=== PATIENT | male | born 1960 | race Caucasian/White ===

== ENCOUNTER 2016-12-23 15:48 | Emergency (ER) | payer MEDICAID ==
[2016-12-23] MEDS ORDERED: IBUPROFEN 600 MG TABLET PO STA (16:15)
[2016-12-23] MEDS ORDERED: HYDROcod/ACETAM 5/325 MG TABLET PO STA (16:15)
[2016-12-23] MEDS ORDERED: HYDROcod/ACETAM 5/325 MG TABLET ONE (16:34)
[2016-12-23] MEDS ORDERED: IBUPROFEN 600 MG TABLET PO ONE (16:34)
== END 2016-12-23 17:15 | disposition home or self-care (01) ==
DX: M75.32 Calcific tendinitis of left shoulder (principal); S46.002A Unspecified injury of muscle(s) and tendon(s) of the rotator cuff of left shoulder, initial encounter; X50.0XXA Overexertion from strenuous movement or load, initial encounter; Y93.89 Activity, other specified; Y92.89 Other specified places as the place of occurrence of the external cause; Y99.0 Civilian activity done for income or pay; I10 Essential (primary) hypertension
CPT/HCPCS: 73030; 99283; A9270

== ENCOUNTER 2017-07-25 10:20 | Outpatient (CLI) | payer MEDICAID ==
--- NOTE | 2017-07-25 15:18 | MRI Report ---
EXAM: LEFT SHOULDER MRI WITHOUT CONTRAST EXAM DATE: 07/25/2017 11:15 AM. CLINICAL HISTORY: Left shoulder pain. COMPARISON: Left shoulder radiography from 12/23/2016. TECHNIQUE: Multiplanar, multisequence T1-weighted and fluid-sensitive sequences of the shoulder witho ut contrast. Other: None. FINDINGS: Acromioclavicular Region: The acromion is type I. The acromioclavicular joint is unremarkable. The co racoacromial and coracoclavicular ligaments are intact. Small to moderate amount of fluid at the suba cromial subdeltoid bursa. There is also isointense to hypointense tissue within the subacromial subde ltoid bursa. Glenohumeral Region: The humeral head is subluxed slightly superiorly relative to the glenoid. No eff usion or loose bodies. 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 The glenohumeral ligam ents and joint capsule are unremarkable. Bone Marrow: Subchondral marrow edema and tiny subcortical cysts at the anterosuperior aspect of the humeral head. No acute fracture or bone lesions. Small focus of mild subchondral marrow edema at the posterior-superior aspect of the glenoid. Labrum: There is a probable sublabral sulcus variant at the superior aspect of the labrum. The college tutor ior aspect of the labrum appears mildly degenerated. No definite labral tear is seen on this non-arth rographic exam. Musculature/Rotator Cuff: There is a focal, approximately 2.4 cm AP by 1.6 cm medial to lateral full- thickness, partial width tear at the mid to posterior aspects of the supraspinatus tendon. The tear a lso extends into the anterior to mid aspects of the infraspinatus tendon. There is tendinosis and par tial-thickness tearing of the remaining infraspinatus tendon. The teres minor tendon is intact. There is diffuse low-grade articular surface fraying/tearing at the distal aspect of the subscapularis ten don. Grade 2 fatty atrophy and edema at the infraspinatus muscle. Biceps Tendon: The long head of the biceps tendon and biceps erin are intact. Other: The subcutaneous tissues are unremarkable. IMPRESSION: 1. Mild to moderate subacromial/subdeltoid bursitis. There is a small amount of tissue within the sub acromial subdeltoid bursa which is probably inflammatory in etiology. 2. Slight superior subluxation of the humeral head relative to the glenoid. Grade 3 chondromalacia at the glenohumeral joint. 3. Mild degeneration at the posterior aspect of the labrum. 4. Focal full-thickness, partial width tear at the mid to posterior aspects of the supraspinatus tend on and anterior to mid aspects of the infraspinatus tendon. There is tendinosis and partial-thickness tearing of the remaining infraspinatus tendon. Diffuse low-grade articular surface fraying/tearing a t the distal aspect of the subscapularis tendon. Grade 2 fatty atrophy and edema at the infraspinatus muscle. [facility] MUSCULOSKE[facility] RADIOLOGY SECTION Referring Provider Line: [phone] SITE ID: [id number]
== END 2017-07-25 10:21 | disposition home or self-care (01) ==
LOC: DI 10:20
PROVIDERS: ATTEND Orthopaedic Surgery
DX: M75.52 Bursitis of left shoulder (principal); M75.102 Unspecified rotator cuff tear or rupture of left shoulder, not specified as traumatic; S43.002A Unspecified subluxation of left shoulder joint, initial encounter; M94.212 Chondromalacia, left shoulder; Z01.810 Encounter for preprocedural cardiovascular examination; Z79.899 Other long term (current) drug therapy
CPT/HCPCS: 93005

== ENCOUNTER 2017-08-02 10:10 | Day surgery (SDC) | payer MEDICAID ==
[~2017-08-02 10:10] MED LIST: SODIUM CHLORIDE FLUSH 0.9% 10 ML SYRINGE IVP ONE; ceFAZolin 2 GM/50 ML 2 GM/50 ML BAG IV ONE
[2017-08-02] MEDS ORDERED: LACTATED RINGERS 1,000 ML IV ONE ×2 (10:17→13:26)
[2017-08-02] MEDS ORDERED: BUPIVACAINE 0.5% PF 30 ML VIAL SUBQ ONE ×3 (11:20→13:25)
[2017-08-02] MEDS ORDERED: DEXAMETHASONE 4 MG/ML VIAL IVP ONE (11:45)
[2017-08-02] MEDS ORDERED: fentaNYL 100 MCG/2 ML VIAL IVP ONE (11:45)
[2017-08-02] MEDS ORDERED: GLYCOPYRROLATE 1 MG/5 ML VIAL IVP ONE (11:45)
[2017-08-02] MEDS ORDERED: LIDOCAINE-MPF 2% 5 ML VIAL IM ONE (11:45)
[2017-08-02] MEDS ORDERED: KETOROLAC 30 MG/ML VIAL IVP ONE (11:45)
[2017-08-02] MEDS ORDERED: SUCCINYLCHOLINE 200 MG/10 ML VIAL IVP ONE (11:45)
[2017-08-02] MEDS ORDERED: ONDANSETRON 4 MG/2 ML VIAL IVP ONE (11:45)
[2017-08-02] MEDS ORDERED: MIDAZOLAM 2 MG/2 ML VIAL IVP ONE (11:45)
[2017-08-02] MEDS ORDERED: ROCURONIUM 50 MG/5 ML VIAL IVP ONE (11:45)
[2017-08-02] MEDS ORDERED: PROPOFOL 200 MG/20 ML VIAL IVP ONE (11:45)
[2017-08-02] MEDS ORDERED: NEOSTIGMINE 1 MG/1 ML 10 ML MDV IVP ONE (11:45)
--- NOTE | 2017-08-02 13:57 | OPERATIVE REPORT ---
Operative Report - General Procedure Date: 08/02/17 Planned Procedure: TEP LEFT inguinal herniorrhaphy Pre-Op Diagnosis: LEFT inguinal hernia Procedure Performed: LEFT recurrent indirect inguinal herniorrhaphy Post Op Diagnosis: Recurrent LEFT indirect inguinal hernia - Procedure Note Primary Surgeon: Boom Leslie MD Anesthesia Provider: John Terry Anesthesia Technique: General ET tube, Local (30 mL 1/2% marcaine) IV Fluids (mL): 900 Estimated Blood Loss (mL): 10 Complications: None. - Other Other Information/Narrative: OPERATIVE DESCRIPTION/REPORT: After verbal and written informed consent was obtained detailing the risks of infection, bleeding requiring transfusion with its risks, nerve injury, and , and after I met with the patient confirming the surgery and the site of the surgery, the patient was brought to the operative suite and placed supine on the operating table. Great care was taken to avoid pressure points to prevent pressure necrosis or nerve injury. Monitoring devices were applied along with TEDs and pneumatic compressive stockings (to prevent DVT). The patient received preoperative antibiotics for surgical prophylaxis. John Terry sedated and induced general anesthesia and provided anesthesia care for the entirety of the case. The patient was prepped and draped in the usual sterile manner. With the patient draped my initials were clearly visible. A "time in" then confirmed that the patient was identified with 3 identifiers ( name, date and medical record number), the history and physical was in the chart, the signed consent confirming the procedure was in the chart, the patient was in the correct position, the aforementioned prophylactic measures were in place or given, we had the correct personnel and equipment to complete the procedure and that anesthesia, surgery and nursing were given an opportunity to express any concerns. With the agreement of everyone in the room , we proceeded with the operation. A transverse skin incision was made below and to the right of the umbilicus to a length of approximately 3 cm. The incision was carried through the subcutaneous tissue. Bleeders were cauterized. The right rectus sheath was identified and incised lateral to the midline. The preperitoneal space was then developed following insertion of a Spacemaker balloon, which was inflated under direct vision. Following removal of the Spacemaker balloon, a #10 trocar was placed in the preperitoneal space and the preperitoneal space was insufflated with CO2 to a steady state pressure of 15 mmHg. A 10 mm 30 degree laparoscope was inserted in the preperitoneal space. Two #5 trocars were placed in the lower right and midline 5 cm and 10 cm away from the umbilical incision under direct vision and without incident. Landmarks including symphysis pubis, right and left Jon ligaments and right and left inferior epigastric vessels were identified. Dissection was then continued lateral to the transverse abdominis muscle bilaterally. The left (symptomatic) side was addressed first. The internal ring was then explored for the presence of the indirect hernia sac and an indirect hernia was found. The sac was large, broad based and scarred. The sac was dissected free from the cord structures and the cremasteric muscles with significant difficulty. A small hole was made in the sac during the dissection and due to the small size I opted not to fix it. The dissection brought the peritoneum posterolaterally so that it would lay on proper side of the mesh. Exploration of the medial space showed no medial defect consistent with a direct hernia. A large size Bard 3DMax light mesh (Lot #[id number], reference #[id number], use by date 2022-02-06) was placed in the preperitoneal space and anchored to the symphysis pubis with a SecureStrap tacker. The mesh covered the internal ring as well as the medial space. Great care was taken to ensure that the peritoneum was swept down so that it could not "creep" behind the mesh and result in a re-recurrent hernia. The right side was then addressed. There was no indirect inguinal hernia. The direct inguinal space was clearly seen but no definitive hernia was present. Consequently I left the right side alone. 20 mL of 1/2% Marcaine was injected into the preperitoneal space and then remaining 10 mL at all three incisions. The preperitoneal space was then deflated and during the deflation the mesh was watched to ensure that it was sandwiched nicely in place and did not change position. All trocars were withdrawn. The defect in the rectus sheath was closed with two [id number] 0 Vicryl sutures. The skin incisions were closed with subcuticular 4-0 Monocryl suture. The prep was washed off and Mastisol and Steristrips were applied at all the incisions. At this point a time out was performed that confirmed that all the counts were correct, the procedure that was performed, the blood loss, the IV fluids administered, and the patients condition. The patient's scrotum was evaluated to ensure that the testicles were well seated within the scrotum and that there was no swelling. The prep was washed off and Benzoin and Steristrips were applied. Having tolerated the procedure well, the patient was subsequently extubated and taken to recovery room in good and stable condition.
[2017-08-02 15:14] VITALS: BP 136/75
== END 2017-08-02 10:11 | disposition home or self-care (01) ==
LOC: SDS 10:10
PROVIDERS: ATTEND Surgery
PROC: 0YU64JZ Supplement Left Inguinal Region with Synthetic Substitute, Percutaneous Endoscopic Approach (ICD-10-PCS; principal; 2017-08-02 11:15)
DX: K40.91 Unilateral inguinal hernia, without obstruction or gangrene, recurrent (principal); I10 Essential (primary) hypertension; J45.909 Unspecified asthma, uncomplicated; Z87.891 Personal history of nicotine dependence
CPT/HCPCS: 49651; C1781; J0690; J7120

== ENCOUNTER 2017-09-19 08:29 | Outpatient (CLI) | payer MEDICAID ==
--- NOTE | 2017-09-19 13:56 | XRAY Report ---
TWO VIEW RIGHT FOOT: 09/19/2017 CLINICAL INDICATION: Foreign body. FINDINGS: Frontal and lateral views of the right foot demonstrate mild degenerative changes. There is no evidence of acute fracture. No radiopaque foreign body is seen in the soft tissues. IMPRESSION: NO EVIDENCE OF A RADIOPAQUE FOREIGN BODY IN THE SOFT TISSUES. MILD OSTEOARTHRITIS. TD: 09/19/2017 13:55
== END 2017-09-19 08:30 | disposition home or self-care (01) ==
LOC: DI.S 08:29
PROVIDERS: ATTEND Family Medicine
DX: M19.072 Primary osteoarthritis, left ankle and foot (principal)

== ENCOUNTER 2017-10-04 10:32 | Outpatient (CLI) | payer MEDICAID ==
[2017-10-04 17:51] LABS: BASOPHILS # (AUTO) 0.1 10^3/uL (0.0-0.1); BASOPHILS % (AUTO) 1.1 %; EOSINOPHILS # (AUTO) 0.2 10^3/uL (0.0-0.7); EOSINOPHILS % (AUTO) 2.2 %; HGB - HEMOGLOBIN 15.5 g/dL (14.0-18.0); LYMPHOCYTES # (AUTO) 2.6 10^3/uL (1.5-3.5); LYMPHOCYTES % (AUTO) 24.7 %; MEAN CORPUSCULAR HEMOGLOBIN 31.6 pg (27.0-31.0); MEAN CORPUSCULAR HGB CONC 33.6 g/dL (32.0-36.0); MEAN CORPUSCULAR VOLUME 94.1 fL (80.0-94.0); MEAN PLATELET VOLUME 8.3 fL (7.4-11.4); MONOCYTES # (AUTO) 0.8 10^3/uL (0.0-1.0); MONOCYTES % (AUTO) 7.8 %; NEUTROPHILS # (AUTO) 6.6 10^3/uL (1.5-6.6); NEUTROPHILS % (AUTO) 64.2 %; PLT - PLATELET COUNT 267 10^3/uL (130-450); RED BLOOD COUNT 4.91 10^6/uL (4.70-6.10); RED CELL DISTRIBUTION WIDTH 14.4 % (12.0-15.0); WHITE BLOOD COUNT 10.3 x10^3/uL (4.8-10.8)
[2017-10-04 18:10] LABS: ALBUMIN 4.7 g/dL (3.2-5.5); ALBUMIN/GLOBULIN RATIO 1.4 (1.0-2.2); ALKALINE PHOSPHATASE 72 IU/L (42-121); ALT ALANINE AMINOTRANSFERASE 26 IU/L (10-60); AST ASPARTATE AMINOTRANSFERASE 25 IU/L (10-42); BILIRUBIN,TOTAL 0.9 mg/dL (0.2-1.0); BUN - BLOOD UREA NITROGEN 15 mg/dL (6-20); CALCIUM 9.3 mg/dL (8.5-10.3); CARBON DIOXIDE - CO2 27 mmol/L (21-32); CHLORIDE 99 mmol/L (101-111); CHOL/HDL RATIO 3.9 (<5.0); CHOLESTEROL 192 mg/dL; CREATININE 0.8 mg/dL (0.6-1.2); GFR - MDRD 99 (>89); GLUCOSE 112 mg/dL (70-100); HDL CHOLESTEROL 49 mg/dL; LDL CHOLESTEROL,CALCULATED 121 mg/dL; LDL/HDL RATIO 2.5 (<3.6); SODIUM 136 mmol/L (135-145); URIC ACID 7.9 mg/dL (2.6-7.2); VLDL CHOLESTEROL 22 mg/dL
== END 2017-10-04 10:33 | disposition home or self-care (01) ==
LOC: LAB.F 10:32
PROVIDERS: ATTEND Nurse Practitioner Family
DX: Z86.79 Personal history of other diseases of the circulatory system (principal); M79.676 Pain in unspecified toe(s)
CPT/HCPCS: 36415; 80050; 80061; 83721; 84550

== ENCOUNTER 2019-09-13 18:44 | Emergency (ER) | payer MEDICAID ==
--- NOTE | 2019-09-13 19:42 | ED Physician Documentation ---
History of Present Illness - Stated complaint Stated Complaint: RT ANKLE,LT SHOULDER PX - Chief complaint Chief Complaint: Ext Problem - History obtained from History obtained from: Patient (Lower extremity swelling for the last 6 months after he ran out of his hydrochlorothiazide he denies any chest pain or shortness of breath, He reports that his primary care physician has retired and he has been unable to establish care with a primary care physician since that time.He denies any chest pain he denies abdominal pain he denies any syncopal episodes.) Review of Systems Constitutional: reports: Reviewed and negative Eyes: reports: Reviewed and negative Ears: reports: Reviewed and negative Nose: reports: Reviewed and negative Throat: reports: Reviewed and negative Cardiac: reports: Pedal edema Respiratory: reports: Reviewed and negative GI: reports: Reviewed and negative : reports: Reviewed and negative Skin: reports: Reviewed and negative Musculoskeletal: reports: Neck pain, Back pain, Joint pain, Reviewed and negative. denies: Extremity pain, Joint swelling, Pain with weight bearing Neurologic: reports: Reviewed and negative Psychiatric: reports: Reviewed and negative Endocrine: reports: Reviewed and negative Immunocompromised: reports: Reviewed and negative PD PAST MEDICAL HISTORY - Past Medical History Past Medical History: Yes Cardiovascular: Congestive heart failure, Hypertension Respiratory: None Endocrine/Autoimmune: None : None HEENT: None Psych: None Musculoskeletal: None Derm: None - Past Surgical History Past Surgical History: Yes General: Hiatal hernia repair - Present Medications Home Medications: Ambulatory Orders Medication Instructions Recorded Confirmed Aspirin [Cristiane] 325 mg PO BID PRN 08/02/17 08/02/17 Metoprolol Tartrate [Lopressor] 50 mg PO ONCE 08/02/17 08/02/17 hydroCHLOROthiazide 50 mg PO DAILY 08/02/17 08/02/17 [Hydrochlorothiazide] hydroCHLOROthiazide 25 mg PO DAILY #7 tablet 09/13/19 [Hydrochlorothiazide] - Allergies Allergies/Adverse Reactions: Allergies Allergy/AdvReac Type Severity Reaction Status Date / Time No Known Drug Allergies Allergy Verified 09/13/19 18:59 - Social History Does the pt smoke?: No Smoking Status: Never smoker Does the pt drink ETOH?: Yes Does the pt have substance abuse?: Yes Substance Use and Type: Marijuana - Immunizations Immunizations are current?: Yes - POLST Patient has POLST: No PD ED PE NORMAL - Vitals Vital signs reviewed: Yes - General General: Alert and oriented X 3, No acute distress - HEENT HEENT: PERRL - Neck Neck: Supple, no meningeal sign - Cardiac Cardiac: RRR, No murmur - Respiratory Respiratory: Clear bilaterally - Abdomen Abdomen: Normal bowel sounds, Soft, Non tender, Non distended - Derm Derm: Warm and dry - Extremities Extremities: No deformity, No tenderness to palpate, Normal ROM s pain, No calf tenderness / cord, Other (There is 2+ pitting edema to bilateral lower extremities that is pretibial and symmetric.) - Neuro Neuro: Alert and oriented X 3, stereo plotter operator 2-12 intact, No motor deficit, No sensory deficit, Normal speech - Psych Psych: Normal mood, Normal affect Results - Vitals Vitals: Vital Signs - 24 hr 09/13/19 18:59 Temperature 36.8 C Heart Rate 78 Respiratory 18 Rate Blood Pressure 179/101 H O2 Saturation 98 Oxygen O2 Source Room air Departure - Departure Disposition: 01 Home, Self Care Clinical Impression: Bilateral lower extremity edema Condition: Good Instructions: ED Edema Legs Bilateral Follow-Up: YOUR,DOCTOR [Other] Prescriptions: hydroCHLOROthiazide [Hydrochlorothiazide] 25 mg PO DAILY #7 tablet
[2019-09-13] MEDS ORDERED: hydroCHLOROthiazide 25 MG TABLET PO STA (19:43)
[2019-09-13 19:55] VITALS: BP 192/107
== END 2019-09-13 19:55 | disposition home or self-care (01) ==
LOC: ED 18:44
DX: R60.0 Localized edema (principal); I10 Essential (primary) hypertension; Z79.82 Long term (current) use of aspirin
CPT/HCPCS: 99282; 99284; A9270

== ENCOUNTER 2022-12-26 02:13 | Emergency (ER) | payer MEDICAID ==
--- NOTE | 2022-12-26 02:59 | ED Physician Documentation ---
PD HPI BACK PAIN - Stated complaint Stated Complaint: LOW BACK PX - Chief complaint Chief Complaint: Abd Pain - History obtained from History obtained from: Patient - Additional information Additional information: HPI from patient. Four days ago , patient awoke from sleep with right flank and right low back pain, worse with movement including lifting RLE. Has not had these symptoms before. Denies injury, denies fever. Review of Systems Constitutional: denies: Fever, Chills, Sweats GI: denies: Abdominal Pain, Nausea, Vomiting : denies: Dysuria, Frequency, Hematuria Skin: denies: Rash Musculoskeletal: reports: Back pain. denies: Neck pain Neurologic: denies: Generalized weakness, Focal weakness, Numbness PD PAST MEDICAL HISTORY - Past Medical History Cardiovascular: Congestive heart failure, Hypertension Respiratory: None Endocrine/Autoimmune: None : None HEENT: None Psych: None Musculoskeletal: None Derm: None - Past Surgical History Past Surgical History: Yes General: Hiatal hernia repair - Present Medications Home Medications: Ambulatory Orders Medication Instructions Recorded Confirmed Aspirin [Cristiane] 325 mg PO BID PRN 08/02/17 08/02/17 Metoprolol Tartrate [Lopressor] 50 mg PO ONCE 08/02/17 08/02/17 hydroCHLOROthiazide 50 mg PO DAILY 08/02/17 08/02/17 [Hydrochlorothiazide] hydroCHLOROthiazide 25 mg PO DAILY #7 tablet 09/13/19 [Hydrochlorothiazide] Oxycodone HCl/Acetaminophen 1 - 2 each PO Q6H PRN #14 tablet 12/26/22 [Percocet 5-325 mg Tablet] amLODIPine [Norvasc] 5 mg PO DAILY #30 tablet 12/26/22 - Allergies Allergies/Adverse Reactions: Allergies Allergy/AdvReac Type Severity Reaction Status Date / Time acetaminophen [From Vicodin] AdvReac Itching Verified 12/26/22 02:51 hydrocodone [From Vicodin] AdvReac Itching Verified 12/26/22 02:51 - Social History Does the pt smoke?: No Smoking Status: Never smoker Does the pt drink ETOH?: Yes Does the pt have substance abuse?: Yes - Immunizations Immunizations are current?: Yes - POLST Patient has POLST: No PD ED PE NORMAL - Vitals Vital signs reviewed: Yes - General General: Alert and oriented X 3, No acute distress, Well developed/nourished - Cardiac Cardiac: RRR, No murmur - Respiratory Respiratory: No respiratory distress, Clear bilaterally - Abdomen Abdomen: Soft, Non distended, Other (minimal RLQ and right flank TTP without rebound or guarding) - Back Back: No CVA TTP - Derm Derm: Normal color, Warm and dry, No rash - Extremities Extremities: No edema - Neuro Neuro: Alert and oriented X 3 Results - Vitals Vitals: Oxygen O2 Source Room air - Labs Labs: Laboratory Tests 12/26/22 12/26/22 12/26/22 03:42 03:42 03:46 WBC 10.0 RBC 5.33 Hgb 16.5 Hct 50.3 MCV 94.4 H MCH 31.0 MCHC 32.8 RDW 13.2 Plt Count 216 MPV 9.7 Neut # (Auto) 6.2 Lymph # (Auto) 2.4 Frio # (Auto) 1.1 H Eos # (Auto) 0.3 Baso # (Auto) 0.1 Absolute Nucleated RBC 0.00 Nucleated RBC % 0.0 Sodium 138 Potassium 3.6 Chloride 100 L Carbon Dioxide 26 Anion Gap 12.0 BUN 16 Creatinine 0.7 Estimated GFR (MDRD) 114 Glucose 140 H Calcium 9.2 Total Bilirubin 0.4 AST 23 ALT 24 Alkaline Phosphatase 85 Total Protein 8.5 H Albumin 4.6 Globulin 3.9 Albumin/Globulin Ratio 1.2 Lipase 55 H Urine Color YELLOW Urine Clarity CLEAR Urine pH 6.0 Ur Specific [place] 1.010 Urine Protein NEGATIVE Urine Glucose (UA) NEGATIVE Urine Ketones NEGATIVE Urine Occult Blood TRACE-INTA Urine Nitrite NEGATIVE Urine Bilirubin NEGATIVE Urine Urobilinogen 0.2 (NORMAL) Ur Leukocyte Esterase NEGATIVE Ur Microscopic Review NOT INDICATED Urine Culture Comments NOT INDICATED - Rads (name of study) CT A/P with IV contrast Relevant Findings:: Prelim report reviewed, See rad report PD Medical Decision Making - ED course Complexity details: reviewed results, re-evaluated patient, considered differential, d/w patient ED course: No concerning nor diagnostic findings on tonight's tests including blood tests, UA, and CT A/P. CT A/P does show incidental left inguinal hernia that includes section of colon, but no symptoms that correlate with this finding (patient is aware of his left inguinal hernia). Etiology of patient's symptoms is not apparent at this time. Results and return precautions d/w patient, recommended follow up with PMD for reevaluation. Departure - Departure Disposition: 01 Home, Self Care Clinical Impression: Flank pain, Hypertension Condition: Good Instructions: ED Flank Pain Uncertain Cause, ED Hypertension Conf Out Of Control Follow-Up: Elmira Kidd PA-C [Provider Admit Priv/Credential] - Prescriptions: amLODIPine [Norvasc] 5 mg PO DAILY #30 tablet Oxycodone HCl/Acetaminophen [Percocet 5-325 mg Tablet] 1 - 2 each PO Q6H PRN #14 tablet PRN Reason: pain Comments: There were no concerning or diagnostic findings on tonight's tests, including the blood tests, urinalysis, and the CT scan of your abdomen and pelvis. A left inguinal (groin) hernia was noted on the CT scan. You have indicated this is not a new finding. If the hernia ever becomes firm and tender, you should return immediately to the emergency department for reevaluation. The cause of your symptoms is not apparent at this time. As we discussed, causes of back and flank pain such as a "pinched nerve" would not show up on emergency department tests. If the pain is recurrent or persistent, your primary care provider might order more tests. Is very important that you follow-up with your primary care provider for reevaluation not only of the pain you are having, but also for your high blood pressure. Your blood pressure readings in the emergency department were very high. You are given a dose of medication through the IV called labetalol to help bring blood pressure down temporarily, as well as a dose of clonidine (oral medication), and I am prescribing a 1 month course of blood pressure medication (amlodipine). I am starting you on a low dose of the amlodipine; you might need to have adjustments in this medication, possibly needing a second medication added to this 1 if it is not effective enough to control the blood pressure. Your primary care provider would be the person who would determine the effectiveness of the medication and whether or not the dosing or regimen needs to be changed. If you do not have a primary care provider, contact your insurance provider or go online to the insurance providers website to inquire about options for local primary care providers. If you do not have insurance, you can contact the local primary care provider at the phone number that is included elsewhere in these discharge sheets (TANNER Kidd). Prescriptions for amlodipine as well as for Percocet (opiate/narcotic pain medication) have been electronically submitted to the right [facility] in [place]. I am prescribing a short course of narcotic pain medication for you. These are potentially dangerous and addictive medications that should be used carefully. These medications may constipate you. Take an [id number]-yrp-fpxbqnx stool softener (docusate) twice daily with plenty of water while taking these medications. If you go 24 hours without a bowel movement, take [id number] miralax, per package instructions. Do not drink or drive while taking these medications. If you received narcotic or sedating medications while in the emergency depar tment, do not drive for 24 hours. Store this medication in a safe, secure place and out of reach of children. It is a violation of federal law to give or sell this medication to another person or to use in a manner other than prescribed. The ED will not refill narcotic prescriptions, including prescriptions lost or stolen. To dispose of unwanted medications: 1. [facility] at [address] [facility] in [place] has a medication drop box. They accept prescription medications (in pill form) Saturday through Saturday 9:00 a.m. to 5:00 p.m. 2. [facility] accepts prescription medications (in pill form only) for disposal year round. Call for more information. 3. Contact the [facility] for the next [facility] sponsored prescription drug collection event. , [phone], or [phone]; Discharge Date/Time: 12/26/22 07:04
[2022-12-26] MEDS ORDERED: KETOROLAC 15 MG/ML VIAL IVP STA (03:35)
[2022-12-26] MEDS ORDERED: HYDROmorphone 1 MG/ML CARPUJECT IVP STA ×2 (03:35→05:47)
[2022-12-26 03:48] LABS: BASOPHILS # (AUTO) 0.1 10^3/uL (0.0-0.1); BASOPHILS % (AUTO) 0.7 %; EOSINOPHILS # (AUTO) 0.3 10^3/uL (0.0-0.7); EOSINOPHILS % (AUTO) 2.6 %; HCT - HEMATOCRIT 50.3 % (42.0-52.0); HGB - HEMOGLOBIN 16.5 g/dL (14.0-18.0); LYMPHOCYTES # (AUTO) 2.4 10^3/uL (1.5-3.5); MEAN CORPUSCULAR HGB CONC 32.8 g/dL (32.0-36.0); MEAN CORPUSCULAR VOLUME 94.4 fL (80.0-94.0); MEAN PLATELET VOLUME 9.7 fL (7.4-11.4); MONOCYTES # (AUTO) 1.1 10^3/uL (0.0-1.0); MONOCYTES % (AUTO) 10.5 %; NEUTROPHILS # (AUTO) 6.2 10^3/uL (1.5-6.6); PLT - PLATELET COUNT 216 10^3/uL (130-450); RED BLOOD COUNT 5.33 10^6/uL (4.70-6.10); RED CELL DISTRIBUTION WIDTH 13.2 % (12.0-15.0)
[2022-12-26 04:01] LABS: ALBUMIN 4.6 g/dL (3.2-5.5); ALBUMIN/GLOBULIN RATIO 1.2 (1.0-2.2); BILIRUBIN,TOTAL 0.4 mg/dL (0.2-1.0); CALCIUM 9.2 mg/dL (8.5-10.3); CREATININE 0.7 mg/dL (0.6-1.2); POTASSIUM 3.6 mmol/L (3.5-5.0); TOTAL PROTEIN 8.5 g/dL (6.7-8.2)
[2022-12-26] MEDS ORDERED: iohexoL-300 100 ML VIAL ONE (04:15)
[2022-12-26 04:21] LABS: BILIRUBIN,URINE NEGATIVE (NEGATIVE); GLUCOSE, URINE (UA) NEGATIVE (NEGATIVE); KETONES,URINE (UA) NEGATIVE (NEGATIVE); LEUKOCYTE ESTERASE, URINE NEGATIVE (NEGATIVE); NITRITE,URINE NEGATIVE (NEGATIVE); OCCULT BLOOD,URINE TRACE-INTA (NEGATIVE); PROTEIN,URINE NEGATIVE (NEGATIVE); UROBILINOGEN,URINE 0.2 (NORMAL) E.U./dL (NORMAL)
[2022-12-26 04:22] LABS: CLARITY,URINE CLEAR (CLEAR)
[2022-12-26] MEDS ORDERED: iohexoL-300 100 ML VIAL IVP ONE (04:44)
[2022-12-26] MEDS ORDERED: LABETALOL 20 MG/4 ML SYRINGE IVP STA (05:31)
[2022-12-26 06:50] VITALS: BP 225/144
--- NOTE | 2022-12-26 07:48 | CT Report ---
PROCEDURE: ABDOMEN/PELVIS W INDICATIONS: right flank pain CONTRAST:Omni 300 100ml TECHNIQUE: After the administration of intravenous contrast, 5 mm thick sections acquired from the diaphragms to the symphysis. 5 mm thick coronal and sagittal reformats were acquired. For radiation dose reducti on, the following was used: automated exposure control, adjustment of mA and/or kV according to karol ent size. COMPARISON: None FINDINGS: Image quality: Excellent. Lung bases and heart: Unremarkable. Liver: No solid mass. Gallbladder and biliary tree: No radiopaque stones or wall thickening. No biliary dilation. Spleen: No splenomegaly. Pancreas: No pancreatic ductal dilation. Adrenals: No adrenal nodule. Kidneys and ureters: No hydronephrosis. No renal cystic lesion which requires follow up. No solid mas s. Bowel and peritoneum: No bowel distension. No pathologic free fluid. Left inguinal hernia containing nonobstructed colon. Lymph nodes: No central or retroperitoneal adenopathy. Vessels: No infrarenal aortic aneurysm. PELVIS Reproductive organs: Unremarkable. Bladder: Distended bladder, without wall thickening Pelvic lymph nodes: No pelvic adenopathy by size criteria. Bones: No aggressive osseous abnormality. Bilateral L5 pars defects with trace anterolisthesis of L5 on S1. Other: There is a [place] left inguinal hernia containing nonobstructed colon. IMPRESSION: 1. [place] left inguinal hernia containing nonobstructed colon. 2. No evidence of acute abdominal process. 3. Bilateral L5 pars defects. Findings are concordant with preliminary interpretation provided by [facility]. Reviewed by: Chandler Tesfaye MD on 12/26/2022 7:47 AM PDT Approved by: Chandler Tesfaye MD on 12/26/2022 7:47 AM PDT Station ID: [id number]
== END 2022-12-26 07:04 | disposition home or self-care (01) ==
LOC: ED 02:13
DX: M54.50 Low back pain, unspecified (principal); I10 Essential (primary) hypertension
CPT/HCPCS: 36415; 74177; 80053; 81003; 83690; 85025; 96374; 96375; 96376; 99283; 99284; J1170; Q9967; 81001; 87086

== ENCOUNTER 2023-01-07 09:37 | Emergency (ER) | payer MEDICAID ==
[2023-01-07 09:48] VITALS: BP 153/118
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
[2023-01-07] MEDS ORDERED: oxyCODONE 5 MG TABLET PO STA (12:16)
[2023-01-07] MEDS ORDERED: NAPROXEN 250 MG TABLET PO STA (12:16)
--- NOTE | 2023-01-07 12:37 | XRAY Report ---
PROCEDURE: Knee 3 View RT INDICATIONS: knee injury/fall TECHNIQUE: 3 views of the right knee(s) were acquired. COMPARISON: None. FINDINGS: Bones: Normal mineralization. No acute fractures. Mild medial and patellofemoral compartment joint s pace loss. Trace medial compartment spurs and moderate patellofemoral compartment spurs. There is chr onic enthesopathy at the superficial patella. Soft tissues: Small knee joint effusion. No suspicious soft tissue calcifications or masses. Mild a therosclerotic vascular calcification. IMPRESSION: 1. No acute fracture or dislocation. 2. Mild medial and patellofemoral compartment osteoarthritic change. 3. Small joint effusion of uncertain chronicity. Reviewed by: Leigh Tapia MD on 01/07/2023 11:36 AM MONIE Approved by: Leigh Tapia MD on 01/07/2023 11:36 AM MONIE Station ID: [id number]
== END 2023-01-07 13:23 | disposition home or self-care (01) ==
LOC: ED 09:37
DX: S89.91XA Unspecified injury of right lower leg, initial encounter (principal); S61.511A Laceration without foreign body of right wrist, initial encounter; W26.0XXA Contact with knife, initial encounter; I10 Essential (primary) hypertension
CPT/HCPCS: 73562; 99283; 99284; A9270

== ENCOUNTER 2023-07-09 08:00 | Day surgery (SDC) | payer MEDICAID ==
[2023-07-09] MEDS ORDERED: ceFAZolin 2 GM VIAL ONE (08:21)
[2023-07-09] MEDS ORDERED: LACTATED RINGERS 1,000 ML IV ONE ×2 (08:47→11:30)
--- NOTE | 2023-07-09 09:01 | ANESTHESIA ---
Pre-Anesthesia VS, & Labs - Diagnosis left recurrent inguinal hernia - Procedure left inguinal hernia repair with mesh Vital Signs: Temp Pulse Resp BP Pulse Ox O2 Flow Rate 37.3 C 80 19 153/83 H 98 07/09/23 08:26 07/09/23 08:26 07/09/23 08:26 07/09/23 08:26 07/09/23 08:26 Height: 6 ft Weight (kg): 100 kg Body Mass Index: 29.9 BMI Classification: Overweight - NPO >8 hours Home Medications and Allergies Allergies/Adverse Reactions: Allergies Allergy/AdvReac Type Severity Reaction Status Date / Time No Known Drug Allergies Allergy Verified 07/09/23 08:23 Anes History & Medical History - Anesthetic History Anesthesia Complications: reports: No previous complications - Medical History Cardiovascular: reports: Hypertension Pulmonary: reports: None Gastrointestinal: reports: None Urinary: reports: None Neuro: reports: Peripheral neuropathy (feet) Musculoskeletal: reports: None Endocrine/Autoimmune: reports: None Blood Disorders: reports: None Skin: reports: None Smoking Status: Never smoker Psychosocial: reports: Alcohol (3x per week), Cannabis (daily use) History of Cancer?: No - Surgical History General: reports: Other (L IHR, Incision hernia repair) Exam General: Alert, Oriented x3, Cooperative, No acute distress Dental: Poor dentition (multiple missing) Mouth Openin Fingerbreadth Neck Mobility: Normal Mallampati classification: II Thyromental Distance: 4-6 cm Mental/Cognitive Status: Alert/Oriented X3, Normal for patient Plan Anesthesia Type: General Regional Block: Per Surgeon's request for Post Op pain control Consent for Procedure(s) Verified and Reviewed: Yes Code Status: Attempt Resuscitation ASA classification: 2-Mild systemic disease Is this case an emergency?: No
[2023-07-09] MEDS ORDERED: ATROPINE ABBOJECT 1 MG/10 ML SYRINGE IVP PRN (09:05)
[2023-07-09] MEDS ORDERED: NALOXONE 0.4 MG/ML VIAL IVP PRN (09:05)
[2023-07-09] MEDS ORDERED: fentaNYL 100 MCG/2 ML VIAL IVP PRN (09:05)
[2023-07-09] MEDS ORDERED: ONDANSETRON 4 MG/2 ML VIAL IVP PRN ×2 (09:05→12:02)
[2023-07-09] MEDS ORDERED: HYDROmorphone 0.5 MG/0.5 ML SYRINGE IVP PRN ×2 (09:05→12:02)
[2023-07-09] MEDS ORDERED: MORPHINE 2 MG/ML CARPUJECT IVP PRN (09:05)
[2023-07-09] MEDS ORDERED: PROPOFOL 200 MG/20 ML VIAL IVP ONE (09:18)
[2023-07-09] MEDS ORDERED: MIDAZOLAM 2 MG/2 ML VIAL ONE (09:18)
[2023-07-09] MEDS ORDERED: BUPIVACAINE 0.5%-EPI 1:200000 PF 30 ML VIAL ONE (09:31)
[2023-07-09] MEDS ORDERED: BUPIVACAINE 0.5%-EPI 1:200000 PF 30 ML VIAL SUBQ ONE (09:53)
[2023-07-09] MEDS ORDERED: DEXAMETHASONE 4 MG/ML VIAL ONE (09:59)
[2023-07-09] MEDS ORDERED: ONDANSETRON 4 MG/2 ML VIAL ONE (09:59)
[2023-07-09] MEDS ORDERED: LACTATED RINGERS 1,000 ML IV SCH (10:00)
[2023-07-09] MEDS ORDERED: HYDROmorphone 1 MG/ML CARPUJECT ONE (10:07)
[2023-07-09] MEDS ORDERED: fentaNYL 100 MCG/2 ML VIAL ONE (11:23)
--- NOTE | 2023-07-09 11:28 | OPERATIVE REPORT ---
Operative Report - General Procedure Date: 07/09/23 Planned Procedure: LEFT inguinal herniorrhaphy with mesh Pre-Op Diagnosis: Re-recurrent LEFT inguinal hernia Procedure Performed: LEFT direct and indirect inguinal herniorrhaphy with mesh Post Op Diagnosis: LEFT direct and indirect inguinal hernia - Procedure Note Primary Surgeon: Boom Leslie MD Anesthesia Provider: Dilip Valles CRNA Anesthesia Technique: General LMA, Local (30 mL 1/2% marcaine with epinephrine) IV Fluids (mL): 1,500 Estimated Blood Loss (mL): 10 Drain/Tube Type: Other (None.) Indications: Symptomatic re-recurrent LEFT inguinal hernia Findings: LEFT recurrent indirect inguinal hernia with absence of the floor. Complications: None. - Other Other Information/Narrative: After verbal and written informed consent was obtained detailing the operation, the alternatives the operation including no operation, risks of infection, bleeding requiring transfusion with its risks, nerve injury, and and after I met with the patient confirming the surgery and the site of surgery, the patient was brought to the operative suite and placed supine on the operating table. Great care was taken to avoid pressure points to prevent pressure necrosis or nerve injury. Monitoring devices were applied along with TEDs and pneumatic compression stockings (to prevent DVT). The patient received preoperative antibiotics for surgical prophylaxis. Dilip Valles CRNA sedated and anesthetized the patient for the entire procedure. The patient was prepped and draped in the usual sterile manner. With the patient draped my initials were clearly visible. A "time in" then confirmed that the patient was identified with 3 identifiers (name, date, and medical record number), the history and physical was updated and in the chart, the signed consent confirming the procedure was in the chart, the patient was in the correct position, the aforementioned prophylactic measures were in place or given, we had the correct personnel and equipment to complete the procedure and that anesthesia and the surgical team were given an opportunity to express any concerns. With the agreement of everyone in the room we proceeded with the operation. A standard inguinal incision was made and dissection was carried down to the external oblique aponeurosis using a combination of Metzenbaum scissors and Bovie electrocautery. A slightly larger incision in the normal was used due to the recurrent nature of this hernia. The external oblique aponeurosis was cleared of overlying adherent tissue, and the external ring was delineated. The external oblique was incised with a scalpel and this incision was carried down to the external ring using Metzenbaum scissors. Having expose the inguinal canal, the cord structures were from the canal using blunt dissection and a Holladay drain was placed around the cord structures at the level of the pubic tubercle. This Holladay drain was then used to retract the cord structures as needed. Adherent cremasteric muscle was dissected free from the cord using Bovie electrocautery. Surgical findings included a very large vas deferensmore than 4 times normal size. There were dense adhesions throughout. The pampiniform plexus was dissected free from the hernia sac using Bovie electrocautery as well as traction and countertraction and he included in the Judy drain retraction along with the vas deferens. The cord was then explored using a combination of sharp and blunt dissection, and an indirect sac was found. The sac was then dissected back to the internal ring with significant dissection due to the extensive scarring. An extra-large PerFix plug was then inserted into the internal ring and secured to the edge of the internal ring using a 2-0 PDS. CV operative report for the details on the reference number, use by date, and lot number. The PerFix onlay patch was then secured to the pubic tubercle with two 2-0 PDS U stitches. The mesh was then secured to the conjoined tendon superiorly using the superior most 2-0 PDS in a running fashion and secured to the shelving edge of Poupart's ligament inferi shannan using the inferior most 2-0 PDS in a running fashion. The reason that the suture was run was due to the complete absence of the floor. Of note the old mesh placed during the laparoscopic procedure was not encountered. The mesh was secured around the cord structures loosely with a 2-0 PDS suture thus creating a new internal ring. The Judy drain was then removed. Meticulous hemostasis was obtained using Bovie electrocautery. The wound was then injected superficially and deep using 30 mL of half percent Marcaine with epinephrine. The incision the external oblique was approximated using 3-0 Vicryl in a running fashion thus reforming the external ring. The skin incision was approximated with 4-0 Monocryl in a subcuticular fashion. The skin was cleaned of its prep and Dermabond was applied. At this point a timeout was performed that confirmed that all counts were correct x2, the procedure that was performed, the blood loss, the IV fluids administered, the patient's condition, and any concerns of the operating team had. Having tolerated the procedure well, the patient was taken recovery room in good and stable condition. Gentle downward traction ensured the testes were well seated in the scrotum. The plan is for outpatient discharge when the patient is adequately recovered. Due to the extensive scarring and the rerecurrent nature of this operation the operation itself lasted approximately 1-1/2 hours which is significantly more than normal. CPT 72899 This document was created in part using voice recognition technology. Because of the inherent limitations of the system, occasional same sounding word substitutions and grammatical errors do occur and persist despite proofreading. Please read this document for content.
[2023-07-09] MEDS ORDERED: HYDROcod/ACETAM 5/325 MG TABLET PO PRN (12:02)
[2023-07-09] MEDS ORDERED: HYDROcod/ACETAM 5/325 MG TABLET ONE (12:44)
--- NOTE | 2023-07-09 12:46 | ANESTHESIA POST OP EVALUATION ---
Anesthesia Post Eval - Post Anesthesia Eval Vitals: Last Vital Signs Temp 36.4 C L 07/09/23 12:38 Pulse 73 07/09/23 12:38 Resp 16 07/09/23 12:38 BP 147/74 H 07/09/23 12:38 Pulse Ox 95 07/09/23 12:38 O2 Flow Rate CV Function Including HR & BP: Stable Pain Control: Satisfactory Nausea & Vomiting: Negative Mental Status: Baseline Respiratory Status: Airway Patent Hydration Status: Satisfactory Anesthesia Complications: None
[2023-07-09 15:16] VITALS: BP 178/92; O2SAT 97
== END 2023-07-09 08:01 | disposition home or self-care (01) ==
LOC: SDS 08:00
PROVIDERS: ATTEND Surgery
DX: K40.91 Unilateral inguinal hernia, without obstruction or gangrene, recurrent (principal); I10 Essential (primary) hypertension; Z87.891 Personal history of nicotine dependence
CPT/HCPCS: 49520; A9270; C1781; J1170; J7120